=== PATIENT | female | born 1955 | race Caucasian/White ===

== ENCOUNTER → 2016-06-06 | Outpatient (CLI) | payer MEDICAID ==
[~2016-06-06] MED LIST: CATHETER FLUSH 10 ML SYR IV PRN
--- NOTE | 2016-06-06 14:20 | Diagnostic Imaging Report ---
INDICATION: Right upper quadrant abdominal pain. Nuclear hepatobiliary study performed in the routine fashion with intravenous injection of 5.37 mCi of technetium 99m Choletec. There is prompt uptake of the tracer by the liver. Tracer is visualized in the biliary tree within 10 to 15 minutes. Tracer is visualized in the gallbladder within 20 minutes. Tracer is visualized in the small bowel within 35 minutes. The patient was then given Ensure orally. The gallbladder ejection fraction was calculated. The calculated gallbladder ejection fraction was 55 percent. IMPRESSION: Normal nuclear hepatobiliary study with normal gallbladder ejection fraction. Dictated by: Dictated on workstation # [id number]
== END ==
LOC: CARD 11:45
PROVIDERS: ATTEND Surgery
DX: R10.11 Right upper quadrant pain (principal)
CPT/HCPCS: 78227